=== PATIENT | female | born 2000 | race Caucasian/White ===

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

== ENCOUNTER 2018-01-08 11:31 | Emergency (ER) | payer OTHER ==
[~2018-01-08] VITALS: Ht 167.6 cm; Wt 136.1 kg
[~2018-01-08 11:31] MED LIST changes: +CLONIDINE HCL0.1 MG PO; +LIDEX 0.05% CRE15 GM T
== END 2018-01-08 12:50 | disposition home or self-care (01) ==
LOC: ED 11:31
DX: O26.893 Other specified pregnancy related conditions, third trimester (principal); H92.02 Otalgia, left ear; Z3A.28 28 weeks gestation of pregnancy

== ENCOUNTER 2018-01-24 16:56 | Emergency (ER) | payer OTHER ==
[~2018-01-24] VITALS: Ht 167.6 cm; Wt 134.3 kg
== END 2018-01-24 17:25 | disposition left against medical advice (07) ==
LOC: ED 16:56
DX: O36.8130 Decreased fetal movements, third trimester, not applicable or unspecified (principal)

== ENCOUNTER 2018-01-28 12:10 | Emergency (ER) | payer OTHER ==
[~2018-01-28] VITALS: Ht 167.6 cm; Wt 134.3 kg
== END 2018-01-28 15:15 | disposition home or self-care (01) ==
LOC: ED
DX: O9A.213 Injury, poisoning and certain other consequences of external causes complicating pregnancy, third trimester (principal); S30.1XXA Contusion of abdominal wall, initial encounter; Z3A.32 32 weeks gestation of pregnancy; W10.9XXA Fall (on) (from) unspecified stairs and steps, initial encounter; Y93.89 Activity, other specified; Y92.89 Other specified places as the place of occurrence of the external cause; Y99.8 Other external cause status

== ENCOUNTER → 2018-02-02 | Outpatient (CLI) | payer OTHER ==
[~2018-02-02] MED LIST changes: +OMNICEF300 MG PO
== END | disposition home or self-care (01) ==
LOC: LAB 12:19
DX: N39.0 Urinary tract infection, site not specified (principal)

== ENCOUNTER 2018-03-30 13:20 | Emergency (ER) | payer OTHER ==
[~2018-03-30] VITALS: Ht 167.6 cm; Wt 122.5 kg
[~2018-03-30 13:20] MED LIST changes: -OMNICEF300 MG PO
[2018-03-30 13:59] LABS: BASO % 0.4 % (0.0-1.0); EOS # 0.1 10*3/uL (0.0-0.4); EOS % 0.7 % (1.0-4.0); HEMATOCRIT 42.2 % (37.0-47.0); HEMOGLOBIN 13.8 g/dl (12.0-16.0); LYMPH # 1.9 10*3/uL (1.3-4.4); LYMPH % 27.5 % (27.0-41.0); MEAN CELL VOLUME 89.8 fl (81.0-99.0); MEAN CORPUSCULAR HGB 29.4 pg (27.0-31.0); MEAN CORPUSCULAR HGB CONC 32.7 g/dl (33.0-37.0); MEAN PLATELET VOLUME 9.7 fl (9.6-12.3); MONO # 0.7 10*3/uL (0.1-1.0); MONO % 9.8 % (3.0-9.0); NEUT # 4.3 10*3/uL (2.3-7.9); NEUT % 61.2 % (47.0-73.0); PLATELET COUNT AUTOMATED 373 10*3/uL (130-400)
[2018-03-30 14:14] LABS: ALBUMIN 3.6 gm/dl (3.1-4.5); ALKALINE PHOSPHATASE 93 U/L (45-117); BUN 7 mg/dl (7-24); CHLORIDE 103 mmol/L (98-107); CREATININE 0.83 mg/dL (0.55-1.02); POTASSIUM 3.8 mmol/L (3.5-5.1); SGOT/AST 38 IU/L (3-35); SGPT/ALT 45 U/L (12-78); SODIUM 137 mmol/L (136-145); TOTAL PROTEIN 7.3 gm/dL (6.4-8.2)
[2018-03-30 14:26] LABS: BILIRUBIN NEGATIVE (NEGATIVE); BLOOD 3+ (NEGATIVE); CLARITY CLOUDY (CLEAR); COLOR YELLOW (YELLOW); GLUCOSE NEGATIVE (NEGATIVE); KETONE NEGATIVE (NEGATIVE); LEUKO ESTERASE 3+ (NEGATIVE); NITRITE NEGATIVE (NEGATIVE); UROBILINOGEN 0.2 E.U./dl (0.2-1.0)
[2018-03-30 14:42] LABS: BACTERIA 2+; MUCOUS TRACE; RBC TNTC rbc/hpf (0-2); WBC TNTC wbc/hpf (0-5)
[2018-03-30] MEDS ORDERED: OMNICEF300 MG PO (14:51)
== END 2018-03-30 15:40 | disposition home or self-care (01) ==
LOC: ED 13:20
PROVIDERS: Nurse Practitioner Family
DX: O90.89 Other complications of the puerperium, not elsewhere classified (principal); O86.20 Urinary tract infection following delivery, unspecified; O72.1 Other immediate postpartum hemorrhage; H66.92 Otitis media, unspecified, left ear; Z79.2 Long term (current) use of antibiotics; Z79.899 Other long term (current) drug therapy

== ENCOUNTER 2018-07-08 11:49 | Emergency (ER) | payer OTHER ==
[~2018-07-08] VITALS: Ht 167.6 cm; Wt 127.9 kg
[~2018-07-08 11:49] MED LIST changes: +OMNICEF300 MG PO
[2018-07-08 12:36] LABS: BASO % 0.2 % (0.0-1.0); EOS # 0.1 10*3/uL (0.0-0.4); EOS % 0.8 % (1.0-4.0); HEMATOCRIT 45.4 % (37.0-47.0); HEMOGLOBIN 15.1 g/dl (12.0-16.0); LYMPH # 1.3 10*3/uL (1.3-4.4); LYMPH % 11.9 % (27.0-41.0); MEAN CORPUSCULAR HGB 29.3 pg (27.0-31.0); MEAN CORPUSCULAR HGB CONC 33.3 g/dl (33.0-37.0); MEAN PLATELET VOLUME 9.7 fl (9.6-12.3); MONO # 0.6 10*3/uL (0.1-1.0); MONO % 5.4 % (3.0-9.0); NEUT # 8.9 10*3/uL (2.3-7.9); NEUT % 81.3 % (47.0-73.0); PLATELET COUNT AUTOMATED 417 10*3/uL (130-400); RED BLOOD COUNT 5.16 10*6/uL (4.10-5.10); RED CELL DISTRI WIDTH 13.2 % (0-14.5)
[2018-07-08 12:36] LABS: BILIRUBIN NEGATIVE (NEGATIVE); BLOOD NEGATIVE (NEGATIVE); CLARITY SL CLOUDY (CLEAR); COLOR YELLOW (YELLOW); GLUCOSE NEGATIVE (NEGATIVE); KETONE NEGATIVE (NEGATIVE); LEUKO ESTERASE NEGATIVE (NEGATIVE); NITRITE NEGATIVE (NEGATIVE); UROBILINOGEN 0.2 E.U./dl (0.2-1.0)
[2018-07-08 13:00] LABS: ALBUMIN 3.8 gm/dl (3.1-4.5); ALKALINE PHOSPHATASE 88 U/L (45-117); BUN 14 mg/dl (7-24); CHLORIDE 103 mmol/L (98-107); CREATININE 0.78 mg/dL (0.55-1.02); LIPASE 100 U/L (73-393); POTASSIUM 3.9 mmol/L (3.5-5.1); SGOT/AST 22 IU/L (3-35); SGPT/ALT 31 U/L (12-78); SODIUM 137 mmol/L (136-145); TOTAL PROTEIN 7.9 gm/dL (6.4-8.2)
[2018-07-08 13:45] LABS: MUCOUS 1+
[2018-07-08 13:46] LABS: BACTERIA 2+
[2018-07-08] MEDS ORDERED: ZOFRAN4 MG PO (13:48)
[2018-10-26] MEDS ORDERED: MACROBID100 M1 PO (11:45)
== END 2018-07-08 13:52 | disposition home or self-care (01) ==
LOC: ED 11:49
PROVIDERS: Nurse Practitioner Family
DX: K52.9 Noninfective gastroenteritis and colitis, unspecified (principal); R51 Headache; R05 Cough

== ENCOUNTER 2018-08-01 15:41 | Emergency (ER) | payer OTHER ==
[~2018-08-01] VITALS: Ht 167.6 cm; Wt 131.5 kg
[~2018-08-01 15:41] MED LIST changes: +ZOFRAN4 MG PO
[2018-08-01] MEDS ORDERED: TRIPLE ANTIB28.35 GM T (16:08)
[2018-10-26] MEDS ORDERED: MACROBID100 M1 PO (11:45)
== END 2018-08-01 16:10 | disposition home or self-care (01) ==
LOC: ED 15:41
DX: R21 Rash and other nonspecific skin eruption (principal); F42.4 Excoriation (skin-picking) disorder

== ENCOUNTER 2018-08-20 17:41 | Emergency (ER) | payer OTHER ==
[~2018-08-20] VITALS: Ht 167.6 cm; Wt 132.4 kg
[~2018-08-20 17:41] MED LIST changes: +TRIPLE ANTIB28.35 GM T
[2018-08-20 18:19] LABS: BILIRUBIN NEGATIVE (NEGATIVE); BLOOD NEGATIVE (NEGATIVE); CLARITY CLEAR (CLEAR); COLOR YELLOW (YELLOW); GLUCOSE NEGATIVE (NEGATIVE); KETONE NEGATIVE (NEGATIVE); LEUKO ESTERASE 1+ (NEGATIVE); NITRITE NEGATIVE (NEGATIVE); PH 5.5 (5.0-9.0); SPECIFIC GRAVITY >= 1.030 (1.005-1.030); UROBILINOGEN 0.2 E.U./dl (0.2-1.0)
[2018-08-20 18:25] LABS: RBC 0-2 rbc/hpf (0-2)
[2018-08-20 18:26] LABS: BACTERIA 2+
[2018-08-20] MEDS ORDERED: SEPTDS PO ×2 (18:33→18:42)
[2018-10-26] MEDS ORDERED: MACROBID100 M1 PO (11:45)
== END 2018-08-20 19:08 | disposition home or self-care (01) ==
LOC: ED 17:41
PROVIDERS: Emergency Medicine
DX: N39.0 Urinary tract infection, site not specified (principal); Z98.890 Other specified postprocedural states

== ENCOUNTER 2018-10-15 09:16 | Emergency (ER) | payer OTHER ==
[~2018-10-15] VITALS: Wt 145.1 kg
[2018-10-15] MEDS ORDERED: IBUPROFEN600 MG PO (11:18)
[2018-10-26] MEDS ORDERED: MACROBID100 M1 PO (11:45)
== END 2018-10-15 11:15 | disposition home or self-care (01) ==
LOC: ED 09:16
DX: R51 Headache (principal); Z79.2 Long term (current) use of antibiotics

== ENCOUNTER 2018-11-09 16:14 | Emergency (ER) | payer OTHER ==
[~2018-11-09] VITALS: Ht 167.6 cm; Wt 131.5 kg
[2018-11-09] MEDS ORDERED: CEPHALEXIN500 M1 PO (17:00)
== END 2018-11-09 16:58 | disposition home or self-care (01) ==
LOC: ED 16:14
DX: L03.011 Cellulitis of right finger (principal); Z79.899 Other long term (current) drug therapy

== ENCOUNTER 2018-12-03 20:18 | Emergency (ER) | payer OTHER ==
[~2018-12-03] VITALS: Ht 167.6 cm; Wt 127.0 kg
[2018-12-03] MEDS ORDERED: Tobrex Ophth S2.5 ML OPH (20:51)
== END 2018-12-03 21:00 | disposition home or self-care (01) ==
LOC: ED 20:18
DX: H10.9 Unspecified conjunctivitis (principal); Z79.899 Other long term (current) drug therapy; Z79.2 Long term (current) use of antibiotics

== ENCOUNTER 2019-01-03 16:23 | Emergency (ER) | payer OTHER ==
[~2019-01-03] VITALS: Ht 167.6 cm; Wt 132.4 kg
[~2019-01-03 16:23] MED LIST changes: +Tobrex Ophth S2.5 ML OPH
[2019-01-03 17:07] LABS: BILIRUBIN NEGATIVE (NEGATIVE); BLOOD NEGATIVE (NEGATIVE); CLARITY CLEAR (CLEAR); COLOR YELLOW (YELLOW); GLUCOSE NEGATIVE (NEGATIVE); KETONE NEGATIVE (NEGATIVE); LEUKO ESTERASE NEGATIVE (NEGATIVE); NITRITE NEGATIVE (NEGATIVE); UROBILINOGEN 0.2 E.U./dl (0.2-1.0)
[2019-01-03 17:15] LABS: EPITHELIAL CELLS 16-20
[2019-01-03 17:16] LABS: BACTERIA TRACE; WBC 0-2 wbc/hpf (0-5)
[2019-01-03] MEDS ORDERED: PROAIR HFA8.5 GM INH (17:31)
== END 2019-01-03 17:36 | disposition home or self-care (01) ==
LOC: ED 16:23
PROVIDERS: Physician Assistant
DX: R10.32 Left lower quadrant pain (principal); Z79.2 Long term (current) use of antibiotics; Z79.899 Other long term (current) drug therapy

== ENCOUNTER 2019-01-05 11:52 | Emergency (ER) | payer OTHER ==
[~2019-01-05] VITALS: Ht 167.6 cm; Wt 127.9 kg
[~2019-01-05 11:52] MED LIST changes: +PROAIR HFA8.5 GM INH
== END 2019-01-05 13:14 | disposition home or self-care (01) ==
LOC: ED 11:52
DX: T65.891A Toxic effect of other specified substances, accidental (unintentional), initial encounter (principal); T20.16XA Burn of first degree of forehead and cheek, initial encounter; R20.8 Other disturbances of skin sensation; H53.8 Other visual disturbances; Z79.899 Other long term (current) drug therapy; Z79.2 Long term (current) use of antibiotics; Y08.89XA Assault by other specified means, initial encounter; Y93.89 Activity, other specified; Y92.488 Other paved roadways as the place of occurrence of the external cause; Y99.8 Other external cause status

== ENCOUNTER 2019-01-15 11:33 | Emergency (ER) | payer OTHER ==
[~2019-01-15] VITALS: Ht 167.6 cm; Wt 127.9 kg
[2019-01-15 11:55] LABS: BASO % 0.4 % (0.0-1.0); EOS # 0.2 10*3/uL (0.0-0.4); HEMATOCRIT 42.6 % (37.0-47.0); LYMPH # 2.2 10*3/uL (1.3-4.4); MEAN CELL VOLUME 87.5 fl (81.0-99.0); MEAN CORPUSCULAR HGB 28.7 pg (27.0-31.0); MEAN CORPUSCULAR HGB CONC 32.9 g/dl (33.0-37.0); MEAN PLATELET VOLUME 9.7 fl (9.6-12.3); MONO # 0.7 10*3/uL (0.1-1.0); MONO % 8.5 % (3.0-9.0); NEUT # 4.6 10*3/uL (2.3-7.9); NEUT % 59.8 % (47.0-73.0); PLATELET COUNT AUTOMATED 374 10*3/uL (130-400); RED BLOOD COUNT 4.87 10*6/uL (4.10-5.10); RED CELL DISTRI WIDTH 13.4 % (0-14.5); WHITE BLOOD COUNT 7.7 10*3/uL (4.8-10.8)
[2019-01-15 12:06] LABS: BILIRUBIN NEGATIVE (NEGATIVE); BLOOD NEGATIVE (NEGATIVE); CLARITY SL CLOUDY (CLEAR); COLOR YELLOW (YELLOW); GLUCOSE NEGATIVE (NEGATIVE); KETONE NEGATIVE (NEGATIVE); LEUKO ESTERASE NEGATIVE (NEGATIVE); NITRITE NEGATIVE (NEGATIVE); SPECIFIC GRAVITY 1.025 (1.005-1.030); UROBILINOGEN 0.2 E.U./dl (0.2-1.0)
[2019-01-15 12:09] LABS: ALBUMIN 3.6 gm/dl (3.1-4.5); ALKALINE PHOSPHATASE 84 U/L (45-117); BUN 12 mg/dl (7-24); CHLORIDE 105 mmol/L (98-107); CREATININE 0.79 mg/dL (0.55-1.02); POTASSIUM 4.3 mmol/L (3.5-5.1); SGOT/AST 14 IU/L (3-35); SGPT/ALT 22 U/L (12-78); SODIUM 137 mmol/L (136-145); TOTAL PROTEIN 7.5 gm/dL (6.4-8.2)
[2019-01-15 12:11] LABS: B-hCG (QUALITATIVE) NEGATIVE (NEGATIVE)
[2019-01-15 12:16] LABS: BACTERIA 1+; EPITHELIAL CELLS 21-30
== END 2019-01-15 12:54 | disposition home or self-care (01) ==
LOC: ED 11:33
PROVIDERS: Emergency Medicine
DX: R42 Dizziness and giddiness (principal)

== ENCOUNTER 2019-01-28 17:19 | Emergency (ER) | payer OTHER ==
[~2019-01-28] VITALS: Ht 167.6 cm; Wt 127.9 kg
[2019-01-28] MEDS ORDERED: NYSTATIN15 GM T (17:54)
== END 2019-01-28 17:49 | disposition home or self-care (01) ==
LOC: ED 17:19
DX: B37.2 Candidiasis of skin and nail (principal); Z79.2 Long term (current) use of antibiotics; Z79.899 Other long term (current) drug therapy

== ENCOUNTER 2019-02-04 16:15 | Emergency (ER) | payer OTHER ==
[~2019-02-04] VITALS: Ht 167.6 cm; Wt 127.9 kg
[~2019-02-04 16:15] MED LIST changes: +NYSTATIN15 GM T
[2019-02-04] MEDS ORDERED: DELTASONE20 M1 PO (16:44)
[2019-02-04] MEDS ORDERED: SEPTDS PO (16:44)
== END 2019-02-04 16:52 | disposition home or self-care (01) ==
LOC: ED 16:15
DX: L03.116 Cellulitis of left lower limb (principal)

== ENCOUNTER → 2019-03-09 | Outpatient (CLI) | payer OTHER ==
[~2019-03-09] MED LIST changes: +DELTASONE20 M1 PO; +ZYRTEC10 MG PO
[2019-03-09 11:32] LABS: BASO % 0.4 % (0.0-1.0); EOS # 0.1 10*3/uL (0.0-0.4); EOS % 1.1 % (1.0-4.0); HEMATOCRIT 42.7 % (37.0-47.0); LYMPH # 2.3 10*3/uL (1.3-4.4); LYMPH % 26.3 % (27.0-41.0); MEAN CELL VOLUME 88.4 fl (81.0-99.0); MEAN CORPUSCULAR HGB CONC 32.8 g/dl (33.0-37.0); MEAN PLATELET VOLUME 9.6 fl (9.6-12.3); MONO # 0.6 10*3/uL (0.1-1.0); MONO % 7.5 % (3.0-9.0); NEUT # 5.5 10*3/uL (2.3-7.9); NEUT % 64.2 % (47.0-73.0); PLATELET COUNT AUTOMATED 419 10*3/uL (130-400); RED BLOOD COUNT 4.83 10*6/uL (4.10-5.10); RED CELL DISTRI WIDTH 13.3 % (0-14.5); WHITE BLOOD COUNT 8.6 10*3/uL (4.8-10.8)
[2019-03-09 11:58] LABS: ALBUMIN 3.7 gm/dl (3.1-4.5); ALKALINE PHOSPHATASE 84 U/L (45-117); BUN 6 mg/dl (7-24); CHLORIDE 108 mmol/L (98-107); CHOLESTEROL 175 mg/dL (<200); CPK 271 U/L (26-192); CREATININE 0.86 mg/dL (0.55-1.02); HDL CHOLESTEROL 34 mg/dl (40-60); LDL CHOLESTEROL 93 mg/dL (9-159); POTASSIUM 3.8 mmol/L (3.5-5.1); SGOT/AST 21 IU/L (3-35); SGPT/ALT 27 U/L (12-78); SODIUM 138 mmol/L (136-145); T3 UPTAKE 38 % (31-39); THYROXINE (T4) TOTAL 7.4 ug/dl (4.8-13.9); TOTAL PROTEIN 7.7 gm/dL (6.4-8.2); TRIGLYCERIDES 240 mg/dl (<150); VLDL CHOLESTEROL 48 mg/dL (6-40)
[2019-03-11 13:07] LABS: CREATININE, RANDOM URINE 169.2 mg/dL (Not Estab.)
[2019-03-14 07:24] LABS: METANEPH-CREAT RATIO 0.3 (0.0-1.0)
== END | disposition home or self-care (01) ==
LOC: LAB 10:55
PROVIDERS: Pediatrics
DX: E66.3 Overweight (principal)

== ENCOUNTER 2019-03-18 16:45 | Emergency (ER) | payer OTHER ==
[~2019-03-18] VITALS: Ht 167.6 cm; Wt 140.6 kg
[~2019-03-18 16:45] MED LIST changes: -ZYRTEC10 MG PO
[2019-03-18] MEDS ORDERED: FLONASE ALLERG9.9 ML NAS (17:40)
[2019-03-18] MEDS ORDERED: ZYRTEC10 MG PO (17:40)
[2019-03-18] MEDS ORDERED: AMOXICILLIN500 M2 PO (17:40)
== END 2019-03-18 17:51 | disposition home or self-care (01) ==
LOC: ED 16:45
DX: J01.90 Acute sinusitis, unspecified (principal)

== ENCOUNTER 2019-03-31 18:52 | Emergency (ER) | payer OTHER ==
[~2019-03-31] VITALS: Ht 167.6 cm; Wt 127.9 kg
[~2019-03-31 18:52] MED LIST changes: +ZYRTEC10 MG PO
== END 2019-03-31 19:51 | disposition home or self-care (01) ==
LOC: ED 18:52
DX: B34.9 Viral infection, unspecified (principal); Z79.899 Other long term (current) drug therapy; Z79.2 Long term (current) use of antibiotics

== ENCOUNTER 2019-04-21 15:49 | Emergency (ER) | payer OTHER ==
[~2019-04-21] VITALS: Ht 167.6 cm; Wt 131.5 kg
[2019-04-21] MEDS ORDERED: ANAPROX DS550 MG PO (16:08)
== END 2019-04-21 16:50 | disposition home or self-care (01) ==
LOC: ED 15:49
DX: K08.89 Other specified disorders of teeth and supporting structures (principal)

== ENCOUNTER 2019-05-31 16:58 | Emergency (ER) | payer OTHER ==
[~2019-05-31] VITALS: Ht 167.6 cm; Wt 131.5 kg
[2019-05-31] MEDS ORDERED: AMOXICILLIN500 M2 PO (17:19)
[2019-05-31] MEDS ORDERED: LISINOPRIL20 MG PO (17:47)
[2019-05-31] MEDS ORDERED: LEVOTHYROXINE50 MCG PO (17:47)
== END 2019-05-31 17:21 ==
LOC: ED 16:58
DX: J32.0 Chronic maxillary sinusitis (principal); Z79.899 Other long term (current) drug therapy; Z79.2 Long term (current) use of antibiotics

== ENCOUNTER → 2019-07-01 | Outpatient (CLI) | payer OTHER ==
[~2019-07-01] MED LIST changes: +LEVOTHYROXINE50 MCG PO
[2019-07-01 12:22] LABS: BASO % 0.2 % (0.0-1.0); EOS # 0.1 10*3/uL (0.0-0.4); EOS % 0.7 % (1.0-4.0); HEMATOCRIT 42.9 % (37.0-47.0); HEMOGLOBIN 13.9 g/dl (12.0-16.0); LYMPH # 2.1 10*3/uL (1.3-4.4); LYMPH % 24.5 % (27.0-41.0); MEAN CELL VOLUME 88.5 fl (81.0-99.0); MEAN CORPUSCULAR HGB 28.7 pg (27.0-31.0); MEAN CORPUSCULAR HGB CONC 32.4 g/dl (33.0-37.0); MEAN PLATELET VOLUME 9.4 fl (9.6-12.3); MONO # 0.6 10*3/uL (0.1-1.0); MONO % 7.2 % (3.0-9.0); NEUT # 5.7 10*3/uL (2.3-7.9); NEUT % 66.9 % (47.0-73.0); PLATELET COUNT AUTOMATED 400 10*3/uL (130-400); RED BLOOD COUNT 4.85 10*6/uL (4.10-5.10); RED CELL DISTRI WIDTH 13.1 % (0-14.5); WHITE BLOOD COUNT 8.5 10*3/uL (4.8-10.8)
[2019-07-01 13:00] LABS: ALBUMIN 3.9 gm/dl (3.1-4.5); ALKALINE PHOSPHATASE 85 U/L (45-117); BUN 8 mg/dl (7-24); CHLORIDE 105 mmol/L (98-107); CHOLESTEROL 190 mg/dL (<200); CREATININE 0.82 mg/dL (0.55-1.02); HDL CHOLESTEROL 38 mg/dl (40-60); LDL CHOLESTEROL 89 mg/dL (9-159); SGOT/AST 17 IU/L (3-35); SGPT/ALT 26 U/L (12-78); SODIUM 138 mmol/L (136-145); TRIGLYCERIDES 317 mg/dl (<150); VLDL CHOLESTEROL 63 mg/dL (6-40)
[2019-07-01 13:05] LABS: T3 UPTAKE 30 % (31-39)
== END | disposition home or self-care (01) ==
LOC: LAB 11:57
PROVIDERS: Pediatrics
DX: R03.0 Elevated blood-pressure reading, without diagnosis of hypertension (principal)

== ENCOUNTER 2019-08-27 12:04 | Emergency (ER) | payer OTHER ==
[~2019-08-27] VITALS: Ht 167.6 cm; Wt 127.9 kg
== END 2019-08-27 13:35 | disposition home or self-care (01) ==
LOC: ED 12:04
DX: S99.912A Unspecified injury of left ankle, initial encounter (principal); S99.922A Unspecified injury of left foot, initial encounter; Z79.899 Other long term (current) drug therapy; W10.8XXA Fall (on) (from) other stairs and steps, initial encounter; Y93.89 Activity, other specified; Y92.89 Other specified places as the place of occurrence of the external cause; Y99.8 Other external cause status

== ENCOUNTER → 2019-09-14 | Outpatient (CLI) | payer OTHER ==
[2019-09-14 08:58] LABS: CHOLESTEROL 144 mg/dL (<200); TRIGLYCERIDES 165 mg/dl (<150); VLDL CHOLESTEROL 33 mg/dL (6-40)
[2019-09-14 08:59] LABS: HDL CHOLESTEROL 30 mg/dl (40-60); LDL CHOLESTEROL 81 mg/dL (9-159)
[2019-09-14 09:13] LABS: B-hCG (QUALITATIVE) POSITIVE (NEGATIVE)
== END | disposition home or self-care (01) ==
LOC: LAB 07:45
PROVIDERS: Pediatrics
DX: Z32.01 Encounter for pregnancy test, result positive (principal)

== ENCOUNTER 2020-03-31 16:55 | Emergency (ER) | payer OTHER ==
[~2020-03-31] VITALS: Ht 167.6 cm; Wt 155.6 kg
[2020-03-31] MEDS ORDERED: PRENATABS RX T1 EACH PO (17:06)
[2020-03-31] MEDS ORDERED: ASPIRIN CHEWABL81 MG PO (17:07)
[2020-03-31] MEDS ORDERED: CIPRODEX 0.3%-7.5 ML OT ×2 (17:42→17:51)
== END 2020-03-31 17:53 | disposition home or self-care (01) ==
LOC: ED 16:55
DX: H60.91 Unspecified otitis externa, right ear (principal); Z79.899 Other long term (current) drug therapy

== ENCOUNTER 2020-07-27 18:32 | Emergency (ER) | payer OTHER ==
[~2020-07-27] VITALS: Wt 147.0 kg
[~2020-07-27 18:32] MED LIST changes: +ASPIRIN CHEWABL81 MG PO; +CIPRODEX 0.3%-7.5 ML OT; +PRENATABS RX T1 EACH PO
[2020-07-27] MEDS ORDERED: CORTISPORIN SUS10 ML OT (19:01)
[2020-07-27] MEDS ORDERED: IBUPROFEN600 MG PO (19:01)
[2020-07-27] MEDS ORDERED: AUGMENTIN 875875 MG PO (19:01)
== END 2020-07-27 19:15 | disposition home or self-care (01) ==
LOC: ED 18:32
DX: H60.91 Unspecified otitis externa, right ear (principal); H66.91 Otitis media, unspecified, right ear

== ENCOUNTER 2020-09-14 15:25 | Emergency (ER) | payer OTHER ==
[~2020-09-14] VITALS: Ht 170.1 cm; Wt 133.8 kg
[~2020-09-14 15:25] MED LIST changes: +AUGMENTIN 875875 MG PO; +CORTISPORIN SUS10 ML OT
[2020-09-14] MEDS ORDERED: CORTISPORIN SUS10 ML OT (17:12)
[2020-09-14] MEDS ORDERED: DOXYCYCLINE100 M3 PO (17:12)
== END 2020-09-14 17:24 | disposition home or self-care (01) ==
LOC: ED 15:25
DX: H66.92 Otitis media, unspecified, left ear (principal); F17.200 Nicotine dependence, unspecified, uncomplicated; Z79.899 Other long term (current) drug therapy

== ENCOUNTER 2020-10-27 15:00 | Emergency (ER) | payer OTHER ==
[~2020-10-27] VITALS: Ht 167.6 cm; Wt 173.3 kg
[~2020-10-27 15:00] MED LIST changes: +DOXYCYCLINE100 M3 PO
[2020-10-27 16:34] LABS: BILIRUBIN Negative (Negative); BLOOD Negative (Negative); CLARITY Clear (Clear); COLOR Yellow (Yellow); GLUCOSE Negative (Negative); KETONE Negative (Negative); LEUKO ESTERASE Trace (Negative); NITRITE Negative (Negative); SPECIFIC GRAVITY 1.015 (1.001-1.030)
[2020-10-27 16:51] LABS: BACTERIA 2+; RBC 0-2 rbc/hpf (0-2)
== END 2020-10-27 17:03 | disposition home or self-care (01) ==
LOC: ED 15:00
PROVIDERS: Emergency Medicine
DX: O21.8 Other vomiting complicating pregnancy (principal); R10.9 Unspecified abdominal pain; Z3A.01 Less than 8 weeks gestation of pregnancy; Z79.2 Long term (current) use of antibiotics; Z79.899 Other long term (current) drug therapy

== ENCOUNTER 2021-02-03 11:45 | Emergency (ER) | payer OTHER | END 2021-02-03 11:55 | disposition left against medical advice (07) | LOC: ED 11:45 | DX: R21 Rash and other nonspecific skin eruption (principal); Z53.21 Procedure and treatment not carried out due to patient leaving prior to being seen by health care provider ==

== ENCOUNTER 2021-03-13 07:53 | Emergency (ER) | payer OTHER ==
[~2021-03-13] VITALS: Wt 90.7 kg
[2021-03-13 09:05] LABS: BASO % 0.4 % (0.0-1.0); EOS # 0.1 10*3/uL (0.0-0.4); EOS % 1.7 % (1.0-4.0); HEMATOCRIT 42.6 % (37.0-47.0); LYMPH # 2.1 10*3/uL (1.3-4.4); LYMPH % 24.5 % (27.0-41.0); MEAN CELL VOLUME 87.5 fl (81.0-99.0); MEAN CORPUSCULAR HGB 28.7 pg (27.0-31.0); MEAN CORPUSCULAR HGB CONC 32.9 g/dl (33.0-37.0); MEAN PLATELET VOLUME 9.2 fl (9.6-12.3); MONO # 0.6 10*3/uL (0.1-1.0); MONO % 6.6 % (3.0-9.0); NEUT # 5.6 10*3/uL (2.3-7.9); NEUT % 66.6 % (47.0-73.0); PLATELET COUNT AUTOMATED 449 10*3/uL (130-400); RED BLOOD COUNT 4.87 10*6/uL (4.10-5.10); RED CELL DISTRI WIDTH 13.8 % (0-14.5); WHITE BLOOD COUNT 8.4 10*3/uL (4.8-10.8)
[2021-03-13 09:11] LABS: BILIRUBIN Negative (Negative); BLOOD Negative (Negative); CLARITY Clear (Clear); COLOR Yellow (Yellow); GLUCOSE Negative (Negative); KETONE Negative (Negative); LEUKO ESTERASE Negative (Negative); NITRITE Negative (Negative); SPECIFIC GRAVITY 1.025 (1.001-1.030); UROBILINOGEN 0.2 E.U./dl (0.0-1.0)
[2021-03-13 09:20] LABS: ALBUMIN 3.6 gm/dl (3.1-4.5); ALKALINE PHOSPHATASE 71 U/L (45-117); BUN 10 mg/dl (7-24); CHLORIDE 106 mmol/L (98-107); CREATININE 0.78 mg/dL (0.55-1.02); POTASSIUM 3.9 mmol/L (3.5-5.1); SGOT/AST 18 IU/L (3-35); SGPT/ALT 29 U/L (12-78); SODIUM 137 mmol/L (136-145); TOTAL PROTEIN 7.6 gm/dL (6.4-8.2)
[2021-03-13 09:30] LABS: BACTERIA 2+; MUCOUS 1+
== END 2021-03-13 11:31 | disposition home or self-care (01) ==
LOC: ED 07:53
PROVIDERS: Emergency Medicine
DX: O46.91 Antepartum hemorrhage, unspecified, first trimester (principal); Z3A.00 Weeks of gestation of pregnancy not specified

== ENCOUNTER 2021-03-25 20:36 | Emergency (ER) | payer OTHER | END 2021-03-25 21:38 | disposition left against medical advice (07) | LOC: ED 20:36 | DX: O26.899 Other specified pregnancy related conditions, unspecified trimester (principal); Z3A.00 Weeks of gestation of pregnancy not specified; Z53.21 Procedure and treatment not carried out due to patient leaving prior to being seen by health care provider ==

== ENCOUNTER → 2021-09-05 | Outpatient (CLI) | payer OTHER ==
[2021-09-05 08:07] LABS: BASO % 0.3 % (0.0-1.0); EOS # 0.1 10*3/uL (0.0-0.4); EOS % 1.3 % (1.0-4.0); HEMATOCRIT 35.4 % (37.0-47.0); MEAN CELL VOLUME 87.8 fl (81.0-99.0); MEAN CORPUSCULAR HGB CONC 33.1 g/dl (33.0-37.0); MEAN PLATELET VOLUME 9.4 fl (9.6-12.3); MONO # 0.6 10*3/uL (0.1-1.0); NEUT # 4.6 10*3/uL (2.3-7.9); NEUT % 61.8 % (47.0-73.0); PLATELET COUNT AUTOMATED 328 10*3/uL (130-400); RED BLOOD COUNT 4.03 10*6/uL (4.10-5.10); RED CELL DISTRI WIDTH 13.8 % (0-14.5); WHITE BLOOD COUNT 7.5 10*3/uL (4.8-10.8)
== END | disposition home or self-care (01) ==
LOC: LAB 07:49
PROVIDERS: ATTEND Obstetrics & Gynecology
DX: Z13.9 Encounter for screening, unspecified (principal)

== ENCOUNTER 2021-11-30 17:18 | Emergency (ER) | payer OTHER ==
[2021-11-30] MEDS ORDERED: LISINOPRIL2.5 MG PO (17:48)
[2021-11-30 17:49] LABS: BASO % 0.5 % (0.0-1.0); EOS # 0.2 10*3/uL (0.0-0.4); EOS % 1.9 % (1.0-4.0); HEMATOCRIT 38.4 % (37.0-47.0); LYMPH # 3.5 10*3/uL (1.3-4.4); LYMPH % 40.4 % (27.0-41.0); MEAN CELL VOLUME 87.7 fl (81.0-99.0); MEAN CORPUSCULAR HGB 28.1 pg (27.0-31.0); MEAN PLATELET VOLUME 9.4 fl (9.6-12.3); MONO # 0.5 10*3/uL (0.1-1.0); MONO % 6.3 % (3.0-9.0); NEUT # 4.3 10*3/uL (2.3-7.9); NEUT % 50.5 % (47.0-73.0); PLATELET COUNT AUTOMATED 393 10*3/uL (130-400); RED BLOOD COUNT 4.38 10*6/uL (4.10-5.10); RED CELL DISTRI WIDTH 13.4 % (0-14.5); WHITE BLOOD COUNT 8.6 10*3/uL (4.8-10.8)
[2021-11-30 18:05] LABS: ALKALINE PHOSPHATASE 84 U/L (45-117); BUN 12 mg/dl (7-24); CHLORIDE 110 mmol/L (98-107); POTASSIUM 3.6 mmol/L (3.5-5.1); SGOT/AST 23 IU/L (3-35); SGPT/ALT 32 U/L (12-78); SODIUM 141 mmol/L (136-145); TOTAL PROTEIN 7.2 gm/dL (6.4-8.2)
[2021-11-30 18:20] LABS: BILIRUBIN Negative (Negative); BLOOD 1+ (Negative); CLARITY Clear (Clear); COLOR Yellow (Yellow); GLUCOSE Negative (Negative); KETONE Trace (Negative); LEUKO ESTERASE Trace (Negative); NITRITE Negative (Negative); PH 5.5 (4.5-8.0); SPECIFIC GRAVITY >= 1.030 (1.001-1.030)
[2021-11-30 18:25] LABS: BACTERIA 1+; CALCIUM OXALATE CRYSTALS 1+
[2021-11-30 18:26] LABS: HYALINE CAST 0-2; RBC 0-2 rbc/hpf (0-2)
== END 2021-11-30 21:03 | disposition home or self-care (01) ==
LOC: ED 17:18
PROVIDERS: Emergency Medicine
DX: R51.9 Headache, unspecified (principal); R42 Dizziness and giddiness; Z79.899 Other long term (current) drug therapy

== ENCOUNTER 2022-04-22 19:23 | Emergency (ER) | payer OTHER ==
[~2022-04-22] VITALS: Ht 167.6 cm; Wt 168.5 kg
[~2022-04-22 19:23] MED LIST changes: +LISINOPRIL2.5 MG PO
[2022-04-22] MEDS ORDERED: HYDROCODONE-AC1 EAC1 PO (22:05)
== END 2022-04-22 22:45 | disposition home or self-care (01) ==
LOC: ED 19:23
DX: S22.080A Wedge compression fracture of T11-T12 vertebra, initial encounter for closed fracture (principal); V89.2XXA Person injured in unspecified motor-vehicle accident, traffic, initial encounter; Y93.89 Activity, other specified; Y92.89 Other specified places as the place of occurrence of the external cause; Y99.8 Other external cause status

== ENCOUNTER 2022-05-07 16:56 | Emergency (ER) | payer OTHER ==
[~2022-05-07] VITALS: Ht 167.6 cm; Wt 136.1 kg
[~2022-05-07 16:56] MED LIST changes: +HYDROCODONE-AC1 EAC1 PO
== END 2022-05-07 21:07 | disposition home or self-care (01) ==
LOC: ED 16:56
DX: S09.90XA Unspecified injury of head, initial encounter (principal); Z79.899 Other long term (current) drug therapy; V89.2XXA Person injured in unspecified motor-vehicle accident, traffic, initial encounter; Y93.89 Activity, other specified; Y92.89 Other specified places as the place of occurrence of the external cause; Y99.8 Other external cause status

== ENCOUNTER 2022-06-01 15:34 | Emergency (ER) | payer OTHER ==
[~2022-06-01] VITALS: Ht 167.6 cm; Wt 172.4 kg
== END 2022-06-01 17:56 | disposition home or self-care (01) ==
LOC: ED 15:34
DX: T18.9XXA Foreign body of alimentary tract, part unspecified, initial encounter (principal); X58.XXXA Exposure to other specified factors, initial encounter; Y93.89 Activity, other specified; Y92.89 Other specified places as the place of occurrence of the external cause; Y99.8 Other external cause status

== ENCOUNTER 2022-08-10 19:37 | Emergency (ER) | payer OTHER ==
[~2022-08-10] VITALS: Ht 167.6 cm; Wt 148.8 kg
[2022-08-10] MEDS ORDERED: NORMODYNE,TRAN200 MG PO (19:51)
[2022-08-10] MEDS ORDERED: NURTEC ODT75 MG PO (19:51)
== END 2022-08-10 22:36 | disposition home or self-care (01) ==
LOC: ED 19:37
DX: F41.9 Anxiety disorder, unspecified (principal); R51.9 Headache, unspecified; M79.2 Neuralgia and neuritis, unspecified; E78.00 Pure hypercholesterolemia, unspecified; Z98.890 Other specified postprocedural states

== ENCOUNTER 2022-12-13 14:37 | Emergency (ER) | payer OTHER ==
[~2022-12-13 14:37] MED LIST changes: +NORMODYNE,TRAN200 MG PO; +NURTEC ODT75 MG PO
== END 2022-12-13 17:34 | disposition home or self-care (01) ==
LOC: ED 14:37
DX: S00.03XA Contusion of scalp, initial encounter (principal); Z88.8 Allergy status to other drugs, medicaments and biological substances; Z90.49 Acquired absence of other specified parts of digestive tract; X58.XXXA Exposure to other specified factors, initial encounter; Y93.89 Activity, other specified; Y92.89 Other specified places as the place of occurrence of the external cause; Y99.8 Other external cause status

== ENCOUNTER 2023-03-11 16:10 | Emergency (ER) | payer OTHER ==
[~2023-03-11] VITALS: Ht 167.6 cm; Wt 174.2 kg
== END 2023-03-11 19:10 | disposition home or self-care (01) ==
LOC: ED 16:10
DX: M25.562 Pain in left knee (principal); Z90.49 Acquired absence of other specified parts of digestive tract; Z98.890 Other specified postprocedural states

== ENCOUNTER → 2023-03-26 | Outpatient (CLI) | payer OTHER | END | disposition home or self-care (01) | LOC: CT 08:00 | PROVIDERS: ATTEND Orthopaedic Surgery | DX: M17.12 Unilateral primary osteoarthritis, left knee (principal); M25.462 Effusion, left knee; M23.92 Unspecified internal derangement of left knee; M85.862 Other specified disorders of bone density and structure, left lower leg ==

== ENCOUNTER → 2023-07-30 | Outpatient (CLI) | payer OTHER | END | disposition home or self-care (01) | LOC: RAD 14:50 | PROVIDERS: ATTEND Family Medicine | DX: S69.91XA Unspecified injury of right wrist, hand and finger(s), initial encounter (principal); X58.XXXA Exposure to other specified factors, initial encounter; Y93.89 Activity, other specified; Y92.89 Other specified places as the place of occurrence of the external cause; Y99.8 Other external cause status ==

== ENCOUNTER 2024-12-22 10:54 | Emergency (ER) | payer OTHER ==
[~2024-12-22] VITALS: Ht 167.6 cm; Wt 174.2 kg
[2024-12-22] MEDS ORDERED: HYDROCODONE-AC1 EAC1 PO (11:56)
== END 2024-12-22 12:07 | disposition home or self-care (01) ==
LOC: ED 10:54
DX: S83.92XA Sprain of unspecified site of left knee, initial encounter (principal); I10 Essential (primary) hypertension; G43.909 Migraine, unspecified, not intractable, without status migrainosus; Z79.899 Other long term (current) drug therapy; X58.XXXA Exposure to other specified factors, initial encounter; Y93.89 Activity, other specified; Y92.89 Other specified places as the place of occurrence of the external cause; Y99.8 Other external cause status

== ENCOUNTER → 2025-02-08 | Outpatient (CLI) | payer OTHER ==
[2025-02-08 14:24] LABS: BASO # 0.0 10*3/uL (0.0-0.1); BASO % 0.2 % (0.0-1.0); EOS # 0.1 10*3/uL (0.0-0.4); EOS % 1.5 % (1.0-4.0); MEAN CELL VOLUME 90.2 fl (81.0-99.0); MEAN CORPUSCULAR HGB 29.2 pg (27.0-31.0); MEAN PLATELET VOLUME 9.3 fl (9.6-12.3); MONO # 0.5 10*3/uL (0.1-1.0); MONO % 6.3 % (3.0-9.0); NEUT # 4.7 10*3/uL (2.3-7.9); NEUT % 58.4 % (47.0-73.0); NUCLEATED RED BLOOD CELL 0.0 % (0.0-0.0); NUCLEATED RED BLOOD CELL 0.0 10*3/uL (0.0-0.0); PLATELET COUNT AUTOMATED 363 10*3/uL (130-400); RED CELL DISTRI WIDTH 13.4 % (0-14.5)
[2025-02-08 14:43] LABS: ACT PARTIAL THROMBO TIME 26.0 SECONDS (20.0-32.1)
[2025-02-08 14:52] LABS: BETA-HCG, QUANT < 3.0 mIU/mL (3-10); BUN 8 mg/dl (9-23); LDL CHOLESTEROL 85 mg/dL (9-159); SGPT/ALT 17 U/L (5-49)
== END | disposition home or self-care (01) ==
LOC: LAB 13:55
PROVIDERS: ATTEND Family Medicine
DX: Z01.812 Encounter for preprocedural laboratory examination (principal)